=== PATIENT | male | born 1970 | race Two or more races ===

== ENCOUNTER 2021-11-30 13:03 | Emergency (ER) | payer BC, MEDICAID, OTHER ==
[~2021-11-30] VITALS: Ht 180.3 cm; Wt 86.2 kg
[2021-11-30] MEDS ORDERED: IOHEXOL 350 MG/ML 100ML IJ ONE (13:27)
[2021-11-30] MEDS ORDERED: MORPHINE SULFATE 4 MG/ML SYR/VIAL IV ONE (13:30)
[2021-11-30] MEDS ORDERED: MORPHINE SULFATE INJECTION 2 MG/ML SYRG IV ONE ×2 (13:45→15:15)
[2021-11-30 14:07] LABS: Mean Corpuscular Volume 53.8 fL (80.0-100.0)
[2021-11-30 14:08] LABS: Albumin 3.6 g/dL (3.4-5.0); BUN/Creatinine Ratio 13.6; Calcium 8.4 mg/dL (8.5-10.1); Hematocrit 25.8 % (41.0-53.0); Magnesium 2.5 mg/dL (1.6-2.6); Mean Corpuscular Hemoglobin 14.2 pg (28.0-32.0); Mean Corpuscular Hgb Conc. 26.4 g/dL (32.0-36.0); White Blood Cell 29.1 10^3/uL (4.4-10.8)
[2021-11-30 14:10] LABS: Bilirubin, Total 1.1 mg/dL (0.2-1.0); Total Protein 7.6 g/dL (6.4-8.2)
[2021-11-30 14:12] LABS: INR 1.08 (0.9-1.15); Partial Thromboplastin Time 20.7 sec (23.6-33.0)
[2021-11-30 14:24] LABS: Hemoglobin 6.8 g/dL (13.5-17.5); Potassium 2.9 mmol/L (3.5-5.1); Red Cell Distribution Width 23.9 % (11.8-14.3)
[2021-11-30 14:27] LABS: Basophils % (manual) 0 (0.0-2.0); Blast Cells 0; Eosinophils % (manual) 0 (0-7); Metamyelocytes % 0; Myelocytes % 0; Promyelocytes % 0; Reactive Lymphocytes 0
[2021-11-30] MEDS ORDERED: POTASSIUM EFFERVESENT TAB 25 MEQ PO ONE (14:30)
[2021-11-30] MEDS ORDERED: POTASSIUM CHL 20MEQ/100ML 100 ML IV ONE (14:30)
[2021-11-30] MEDS ORDERED: ESMOLOL HCL (10MG/ML) 10 ML VIAL IV ONE (14:30)
[2021-11-30] MEDS ORDERED: ESMOLOL HCL-NS 10MG/ML 250 ML IV SCH (14:30)
[2021-11-30 15:30] LABS: Band Neutrophils % (manual) 5; Lymphocytes % (manual) 7 (10.0-50.0); Monocytes % (manual) 6 (0-12)
[2021-11-30] MEDS ORDERED: LORazepam 2MG/ML-1ML VIAL IV ONE (15:30)
[2021-11-30] MEDS ORDERED: HYDROmorphone HCL 2 MG/ML VL IV ONE ×2 (17:15→20:30)
[2021-11-30 19:00] LABS: Hematocrit 27.6 % (41.0-53.0)
[2021-11-30 19:02] LABS: Hemoglobin 7.6 g/dL (13.5-17.5); Mean Corpuscular Hemoglobin 15.5 pg (28.0-32.0); Mean Corpuscular Hgb Conc. 27.4 g/dL (32.0-36.0); Mean Corpuscular Volume 56.5 fL (80.0-100.0)
[2021-11-30 19:14] LABS: Albumin 3.8 g/dL (3.4-5.0); BUN/Creatinine Ratio 15.5; Calcium 8.6 mg/dL (8.5-10.1); Potassium 3.6 mmol/L (3.5-5.1)
[2021-11-30 19:17] LABS: Bilirubin, Total 2.3 mg/dL (0.2-1.0); Total Protein 7.9 g/dL (6.4-8.2)
[2021-11-30 19:19] LABS: Red Cell Distribution Width 24.8 % (11.8-14.3)
[2021-11-30 19:20] LABS: White Blood Cell 36.2 10^3/uL (4.4-10.8)
[2021-11-30 19:22] LABS: Basophils % (manual) 0 (0.0-2.0); Blast Cells 0; Eosinophils % (manual) 0 (0-7); Myelocytes % 0; Promyelocytes % 0; Reactive Lymphocytes 0
[2021-11-30] MEDS ORDERED: CEFEPIME 1GM/ 50ML 50 ML IV ONE (19:30)
[2021-11-30] MEDS ORDERED: VANCOMYCIN 1GM/250ML 250 ML IV ONE (19:30)
[2021-11-30] MEDS ORDERED: LACTATED RINGER'S 1,000 ML IV ONE (19:30)
[2021-11-30] MEDS ORDERED: BENZOCAINE (DENTAL) 20 % SPRAY 60ML MT ONE (19:30)
[2021-11-30] MEDS ORDERED: metroNIDAZOLE 500MG/100ML 100 ML IV ONE (19:30)
[2021-11-30] MEDS ORDERED: hydrALAZINE HCL 20 MG/ML VL IV ONE (19:30)
[2021-11-30 19:48] LABS: Band Neutrophils % (manual) 10; Lymphocytes % (manual) 5 (10.0-50.0); Metamyelocytes % 1; Monocytes % (manual) 3 (0-12)
[2021-11-30 22:25] VITALS: BP 158/97
== END 2021-11-30 23:00 | disposition short-term general hospital (02) ==
LOC: ER 13:03
DX: K44.9 Diaphragmatic hernia without obstruction or gangrene (principal); I21.4 Non-ST elevation (NSTEMI) myocardial infarction; N17.9 Acute kidney failure, unspecified; E87.6 Hypokalemia; D64.9 Anemia, unspecified; E86.0 Dehydration; D72.829 Elevated white blood cell count, unspecified; Z20.822 Contact with and (suspected) exposure to COVID-19
CPT/HCPCS: 36415; 36430; 36600; 70450; 71045; 71260; 74177; 80053; 82805; 83605; 83690; 83735; 83880; 84484; 85007; 85027; 85610; 85730; 86850; 86900; 86901; 86920; 87426; 96365; 96366; 96367; 96368; 96375; 96376; 99291; J0360; J0692; J1170; J2060; J2270; J3480; J3490; J7040; P9016; Q9967; 93005